=== PATIENT | female | born 1990 | race Caucasian/White ===

== ENCOUNTER 2016-05-31 14:16 | Outpatient (CLI) | payer OTHER, BC ==
[2016-05-31 15:31] LABS: Aty Lym Flag Marked; CH 26.1; CHCM 32.7; HCT 33.7 % (34.0-46.0); HDW 3.92; HGB 10.8 gm/dL (11.4-16.0); Hypochromasia Slight; MCH 25.7 pg (25.0-35.0); MCHC 32.1 g/dL (31.0-37.0); MPO Flag Slight; Mean Platelet Volume 7.4; Poikilocytosis Slight; RBC 4.21 m/uL (3.80-5.40); WBC 7.9 k/uL (3.8-10.6); WBC (Perox) 379.6
[2016-05-31 15:51] LABS: ALT 548 U/L (9-52); AST 182 U/L (14-36); Alkaline Phosphatase 227 U/L (38-126)
[2016-05-31 16:09] LABS: Add Differential Manual Differential
[2016-05-31 16:10] LABS: Nucleated Red Blood Cells 0 /100 WBC (0-0); Total Cells Counted 100
--- NOTE | 2016-05-31 17:47 | US ---
EXAMINATION TYPE: US OB BPP wo non-stress DATE OF EXAM: 05/31/2016 5:40 PM COMPARISON: NONE CLINICAL HISTORY: Cholestasis. Decreased movement EXAM PERFORMED: Transabdominal (TA) BPP PARAMETERS: PRESENTATION: Breech LIE: Longitudinal?? HEART RATE: 139bpm RHYTHM: Normal GLORIA: 11.9cm DIAPHRAGM IMAGED: yes BPP SCORIN. Breathin (1 episode of breathing of 30 second duration in 30 minutes of scanning time) 2. Movement: 2 (at least 2 discrete body movements in 30 minutes) 3. Tone: 2 (1 episode of active flexion/extension of limb) 4. GLORIA: 2 (GLORIA index > 5cm) TOTAL SCORE: 8 / 8 TECHNOLOGIST IMPRESSION: Score 8/8. Preliminary results given to L&D nurse at end of exam CONCLUSION: Biophysical profile score is 8 out of 8.
== END 2016-05-31 17:45 | disposition home or self-care (01) ==
LOC: FBPOP 14:16
PROVIDERS: ATTEND Obstetrics & Gynecology
DX: O36.8130 Decreased fetal movements, third trimester, not applicable or unspecified (principal); R10.2 Pelvic and perineal pain; Z3A.36 36 weeks gestation of pregnancy; R05 Cough; L29.9 Pruritus, unspecified
CPT/HCPCS: 59025; 76819; 82239; 84075; 84450; 84460; 85025; 99213

== ENCOUNTER 2016-06-03 11:27 | Inpatient (IN) | payer BC, OTHER ==
[~2016-06-03 11:27] MED LIST: BUPIVACAINE (PF) 0.25% 30 ML VIAL ONE; SODIUM CHLORIDE 0.9% 100 ML BAG ONE; fentaNYL (PF) 50 MCG/ML 5 ML AMP ONE
[2016-06-03] MEDS ORDERED: METHYLERGONOVINE 0.2 MG/ML 1 ML AMP IM PRN (11:30)
[2016-06-03] MEDS ORDERED: OXYTOCIN 10 UNIT/ML 1 ML VIAL IM PRN (11:30)
[2016-06-03] MEDS ORDERED: TERBUTALINE 1 MG/ML VIAL SQ PRN (11:30)
[2016-06-03] MEDS ORDERED: CARBOPROST TROMETHAMINE 250 MCG/ML 1 ML AMP IM PRN (11:30)
[2016-06-03] MEDS ORDERED: LIDOCAINE 1% (PF) 10 MG/ML (30 ML SDV) SQ PRN (11:30)
[2016-06-03] MEDS ORDERED: MISOPROSTOL 25 MCG TAB PO SCH (12:00)
[2016-06-03 12:16] LABS: Basophils % (A) 0 %; CH 25.8; CHCM 32.9; Eosinophils % (A) 0 %; HCT 34.7 % (34.0-46.0); HDW 3.87; HGB 11.1 gm/dL (11.4-16.0); Hypochromasia Slight; Luc # (Auto) 0.15; Luc % (Auto) 2; Lymphocytes # (A) 1.6 k/uL (1.0-4.8); Lymphocytes % (A) 19 %; MCH 25.2 pg (25.0-35.0); MCHC 32.1 g/dL (31.0-37.0); MCV 78.6 fL (80.0-100.0); Mean Platelet Volume 7.7; Monocytes # (A) 0.3 k/uL (0-1.0); Monocytes % (A) 4 %; Neutrophils # (A) 6.5 k/uL (1.3-7.7); Neutrophils % (A) 75 %; Poikilocytosis Slight; RBC 4.42 m/uL (3.80-5.40); RDW 13.9 % (11.5-15.5); WBC 8.7 k/uL (3.8-10.6); WBC (Perox) 9.11
[2016-06-03 12:17] LABS: ALT 459 U/L (9-52); AST 132 U/L (14-36); Alkaline Phosphatase 223 U/L (38-126)
[2016-06-03 12:23] LABS: INR 0.9 (<1.1); Partial Thromboplastin Time 22.9 sec (22.0-30.0); Prothrombin Time 9.5 sec (9.0-12.0)
[2016-06-03 12:25] VITALS: BMI 30.8
[2016-06-03] MEDS: MISOPROSTOL 25 MCG TAB VAGINAL SCH ×4 (12:30→21:38)
[2016-06-03] MEDS: LACTATED RINGERS 1,000 ML IV SCH ×2 (12:34→17:31)
--- NOTE | 2016-06-03 12:41 | P.HPOB ---
History of Present Illness H&P Date: 06/03/16 Chief Complaint: Cholestasis of , recommendation of maternal medicine to scout This is a 25-year-old white female 2 para 1001 EDC 06/24/2016 at 37 weeks gestation. Patient presented to labor and delivery over the weekend with an increasing sensation of itching. Labs were done including ALT of 548, AST 182, alk phos 227. Fetus is been active throughout the . She presented to the office today for follow-up. Reactive NST was noted. I discussed the case thoroughly with Dr. Tavarez at [facility], maternal- medicine. His recommendation was for delivery today. This is due to an elevated risk of internal uterine demise. Past medical history is significant for fatty liver in the past, liver enzymes in the normal limits first trimester . Also significant for asthma. Current medications Ventolin inhaler as needed, vitamin daily. ALLERGIES none known. Past surgical history left knee scope 2007, adenoidectomy 2006, tonsillectomy 2006. 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 history: Blood type is O+, group B strep cultures negative, rubella status immune. VDRL testing, urine culture, gonorrhea Chlamydia cultures, hepatitis B surface antigen, HIV testing all negative. One-hour Glucola 156, 3 hour GTT within normal limits. Ultrasound has identified a full right renal pelvis of the fetus, pediatricians will be notified. On exam this is a pleasant white female, 5 foot 3 inches, 174 pounds, blood pressure 122/64, respirations 18, temperature 98.4, 100% O2 saturation. Chest is clear in all carlson. Abdomen is obvious E gravid, fundal height is 37 cm, infant is vertex to Juan's maneuvers. Cervix is long, moderately soft, mid position, floating, vertex, fingertip in the internal cervical canal. Cytotec 25 MCG's is placed intravaginally. heart rate is in the 140s with frequent accelerations, consistent with reactive NST. Admitting labs today include AST 132, ALT for 59, alk phos 223, normal PT and PTT. Impression: 37 week intrauterine , cholestasis of , recommendation of maternal medicine for delivery today. Plan: With an unfavorable cervix we will utilize Cytotec, every 3-4 hours intravaginally. Close maternal and surveillance. Clear liquids until active labor. Likely oxytocin and artificial amniorrhexis of membranes in the morning. Past Medical History Past Medical History: Asthma History of Any Multi-Drug Resistant Organisms: None Reported Past Surgical History: Adenoidectomy, Orthopedic Surgery, Tonsillectomy Additional Past Surgical History / Comment(s): Left Knee scoped Past Anesthesia/Blood Transfusion Reactions: No Reported Reaction Past Psychological History: No Psychological Hx Reported Smoking Status: Never smoker Past Alcohol Use History: None Reported Past Drug Use History: None Reported - Past Family History Mother Family Medical History: Hypertension Medications and Allergies Home Medications Medication Instructions Recorded Confirmed Type Albuterol Inhaler [Ventolin 1 puff INHALATION ONCE PRN 12/16/14 05/31/16 History Inhaler] Pnv #78/Iron Asp Gly/FA#1/Dha 1 each PO DAILY 12/16/14 05/31/16 History [Prenate Dha Softgel] Allergies Allergy/AdvReac Type Severity Reaction Status Date / Time No Known Allergies Allergy Verified 06/03/16 11:30 Exam - Vital Signs Vital signs: Vital Signs Temp Pulse Resp BP Pulse Ox 06/03/16 11:28 98.4 F 120 H 18 122/64 100 Intake and Output 06/02/16 06/03/16 06/03/16 22:59 06:59 14:59 Other: Weight 78.925 kg Patient Weight 06/04/16 06:59 Weight 78.925 kg Results Result Diagrams: 06/03/16 11:50 Abnormal Lab Results - Last 24 Hours (Table) 06/03/16 06/03/16 Range/Units 11:50 11:50 Hgb 11.1 L (11.4-16.0) gm/dL MCV 78.6 L (80.0-100.0) fL AST 132 H (14-36) U/L ALT 459 H (9-52) U/L Alkaline Phosphatase 223 H (38-126) U/L
[2016-06-04] MEDS: LACTATED RINGERS 1,000 ML IV SCH ×2 (01:38→08:11)
[2016-06-04] MEDS: MISOPROSTOL 25 MCG TAB VAGINAL SCH ×3 (01:38→10:15)
[2016-06-04] MEDS ORDERED: BUTORPHANOL 1 MG/ML 1 ML VIAL IV PRN (04:39)
[2016-06-04] MEDS: OXYTOCIN 30 UNITS/500 ML NS 30 UNIT in SALINE 1 500ML.BAG IV SCH ×2 (06:24→13:29)
[2016-06-04] MEDS ORDERED: BUPIVACAINE (PF) 0.25% 25 ML, fentaNYL (PF) 200 MCG in SODIUM CHLORIDE 0.9% 71 ML EPIDURAL ONE (07:54)
[2016-06-04] MEDS ORDERED: BISACODYL 10 MG SUPP RECTAL PRN (11:50)
[2016-06-04] MEDS ORDERED: BENZOCAINE/MENTHOL SPRAY 1 GM/SPRAY AEROSOL TOPICAL PRN (11:50)
[2016-06-04] MEDS ORDERED: diphenhydrAMINE 50 MG CAP PO PRN (11:50)
[2016-06-04] MEDS ORDERED: ZOLPIDEM 5 MG TAB PO PRN (11:50)
[2016-06-04] MEDS ORDERED: WITCH HAZEL 1 EACH MED..PAD TOPICAL PRN (11:50)
[2016-06-04] MEDS ORDERED: SIMETHICONE 80 MG CHEWABLE PO PRN (11:50)
[2016-06-04] MEDS ORDERED: IBUPROFEN 600 MG TAB PO PRN (11:50)
[2016-06-04] MEDS ORDERED: Acetaminophen-Codeine 300-30mg TAB PO PRN (11:50)
[2016-06-04] MEDS ORDERED: HYDROCORTISONE 2.5% RECTAL CREAM 30 GM TUBE RECTAL PRN (11:50)
[2016-06-04] MEDS ORDERED: diphenhydrAMINE 25 MG CAP PO PRN (11:50)
[2016-06-04] MEDS ORDERED: diphenhydrAMINE 50 MG/ML 1 ML VIAL IVP PRN ×2 (11:50)
[2016-06-04] MEDS ORDERED: ACETAMINOPHEN TAB 325 MG TAB PO PRN (11:50)
[2016-06-04] MEDS ORDERED: LANOLIN CREAM 5 GM TUBE TOPICAL PRN (11:50)
--- NOTE | 2016-06-04 11:50 | P.PROBDLV ---
Vaginal Delivery Note - . Vaginal Delivery Note: This is a 25-year-old white female 2 para 1001 EDC 06/24/2016 at 37 and one sevenths weeks today. Patient was seen in the office yesterday in follow- up from the triage area. She was noted to have cholestasis of with abnormal lab values. Her case was discussed in detail with maternal- medicine at [facility], Dr. Tavarez. Concern was for intrauterine demise, and recommendation was to move toward delivery. Cervix was unfavorable, therefore she was admitted for Cytotec 25 MCG tablets placed intravaginally. Please see my dictated history and physical for details. Cytotec was indeed placed intravaginally 4. Uterine contractions commenced. Patient requested Stadol at approximately 0500 hrs. and was given 1 mg intravenously. Artificial amniorrhexis revealed clear fluid. Oxytocin was started and titrated per hospital protocol. She became uncomfortable and requested epidural, this was placed without difficulty per the anesthesia staff. She progressed well through labor and was judged to be completely dilated and began the second stage of labor at that time. Station was +1. Perineal body was prepped and draped in the usual sterile fashion. With excellent maternal expulsive efforts, and with 1 push, the 's head crowned occiput anterior. He restituted accordingly. There was no nuchal cord noted. The right or anterior shoulder was gently and easily delivered from underneath the pubic symphysis at which time the oropharynx, nasopharynx, and external nares were bulb suctioned on the perineal body. Patient was officially delivered of a liveborn male at 1115 hours. The umbilical cord was doubly clamped and ligated, he was handed to waiting nurses for evaluation where scores of 8 and 9 at one and 5 minutes respectively were given. The placenta delivered spontaneously, it was inspected and noted to be intact with trivascular cord at 1125 hours. At this time the perineal body was redraped with sterile towels. Inspection of the cervix, vagina, perineum and periurethral areas revealed no lacerations and no defects. Fundus is massaged, is firm and in the midline, approximately 18 week size. Total estimated blood loss 250 mL's. All sponge, needle and instrument counts are correct at the end of the procedure. weighed 3030 g, or 6 lbs. 11 oz. The and family are allowed to begin the bonding experience in the LDR. Patient is requesting circumcision for her infant son.
[2016-06-04] MEDS: SENNOSIDES-DOCUSATE SODIUM 1 EACH TAB PO SCH (20:27)
--- NOTE | 2016-06-05 07:48 | P.DS ---
Providers Date of admission: 06/03/16 11:27 Attending physician: Ruchi Lane Primary care physician: Stated None Hospital Course: This is a 25-year-old white female 2 para 1001 EDC 06/24/2016 at 37 and one sevenths weeks' gestation. Patient presented to the office for follow-up on a triage visit 3 days before. The diagnosis of cholestasis of was made. This was discussed with maternal- medicine at [facility], Dr. Tavarez. His recommendation was for immediate delivery secondary to the increased risk of intrauterine demise. Cervix was unfavorable, therefore patient was admitted and underwent Cytotec vaginal tablets every 3 hours for total of 4 doses. Please see my admitting history and physical for details. Artificial amniorrhexis revealed clear fluid the following morning, Pitocin was started, and patient went on to deliver a liveborn male infant with scores of 8 and 9 at one and 5 minutes respectively. weighed 6 lbs. 11 oz. or 3030 g. She did well, no perineal lacerations, estimated blood loss 250 mL's. Please see my dictated delivery note for details. This morning the patient is doing extremely well. She is voiding, ambulating and passing flatus without difficulty. She's completely asymptomatic. Breast- feeding is going well. infant has been circumcised. Breasts are not engorged, extremities are negative, fundus is firm in the midline, symmetric and 18 week size. Minimal to moderate lochia rubra is noted, perineal body is intact. Patient is being therefore discharged home this morning in good condition. She will follow-up with me in the office in 6 weeks at which time liver function studies will be repeated. She is reminded no intercourse, tampons or douching. She will use [id number] Advil or Motrin products as needed for pain. I' ve asked her to call me with any fevers shakes or chills, foul smelling or copious lochia, with the passage of large blood clots, with any pain breast- feeding or indeed with any difficulties. She will continue taking her vitamin daily. We have discussed briefly options for contraception and we will discuss this further in the office. Patient Condition at Discharge: Good Plan - Discharge Summary Discharge Medication List Albuterol Inhaler [Ventolin Inhaler] 1 puff INHALATION ONCE PRN 12/16/14 [ History] Pnv #78/Iron Asp Gly/FA#1/Dha [Prenate Dha Softgel] 1 each PO DAILY 12/16/14 [ History] Ursodiol 300 mg PO TID 06/03/16 [History] Follow up Appointment(s)/Referral(s): Ruchi Lane MD [STAFF PHYSICIAN] - 6 Weeks Patient Instructions/Handouts: Induction of Labor (GEN) Discharge Disposition: HOME SELF-CARE
[2016-06-05] MEDS: SENNOSIDES-DOCUSATE SODIUM 1 EACH TAB PO SCH ×2 (08:28→20:57)
[2016-06-05] MEDS: OXYTOCIN 30 UNITS/500 ML NS 30 UNIT in SALINE 1 500ML.BAG IV SCH ×3 (20:39→21:22)
[2016-06-06 09:17] VITALS: BP 108/72; PULSE 84; RESP 16; TEMP 97.4
[2016-06-06] MEDS: SENNOSIDES-DOCUSATE SODIUM 1 EACH TAB PO SCH (15:46)
== END 2016-06-06 15:15 | disposition home or self-care (01) | DRG 775 ==
LOC: 4FBP 11:27
PROVIDERS: ADMIT Obstetrics & Gynecology; ATTEND Obstetrics & Gynecology
PROC: 10E0XZZ Delivery of Products of Conception, External Approach (ICD-10-PCS; principal; 2016-06-04)
PROC: 3E0P7GC Introduction of Other Therapeutic Substance into Female Reproductive, Via Natural or Artificial Opening (ICD-10-PCS; 2016-06-04)
PROC: 10907ZC Drainage of Amniotic Fluid, Therapeutic from Products of Conception, Via Natural or Artificial Opening (ICD-10-PCS; 2016-06-04)
PROC: 00HU33Z Insertion of Infusion Device into Spinal Canal, Percutaneous Approach (ICD-10-PCS; 2016-06-04)
DX: O26.62 Liver and biliary tract disorders in childbirth (principal); K83.1 Obstruction of bile duct; O99.52 Diseases of the respiratory system complicating childbirth; Z3A.37 37 weeks gestation of pregnancy; Z37.0 Single live birth; J45.909 Unspecified asthma, uncomplicated; Z82.49 Family history of ischemic heart disease and other diseases of the circulatory system
CPT/HCPCS: 84075; 84450; 84460; 85025; 85610; 85730; 88307

== ENCOUNTER → 2017-09-16 | Outpatient (CLI) | payer BC ==
[2017-09-16 12:08] LABS: Basophils # (A) 0.1 k/uL (0-0.2); Basophils % (A) 1 %; Eosinophils # (A) 0.2 k/uL (0-0.7); Eosinophils % (A) 2 %; HCT 41.2 % (34.0-46.0); HGB 13.3 gm/dL (11.4-16.0); Lymphocytes # (A) 2.1 k/uL (1.0-4.8); Lymphocytes % (A) 27 %; MCH 26.5 pg (25.0-35.0); MCHC 32.3 g/dL (31.0-37.0); Mean Platelet Volume 6.7; Monocytes # (A) 0.3 k/uL (0-1.0); Monocytes % (A) 4 %; Neutrophils # (A) 5.1 k/uL (1.3-7.7); Neutrophils % (A) 65 %; Platelet Count 370 k/uL (150-450); RBC 5.02 m/uL (3.80-5.40); RDW 13.7 % (11.5-15.5); WBC 7.8 k/uL (3.8-10.6)
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
== END | disposition home or self-care (01) ==
LOC: RADCTMAIN 09:57
PROVIDERS: ATTEND Internal Medicine Sleep Medicine
DX: S30.1XXA Contusion of abdominal wall, initial encounter (principal); M79.89 Other specified soft tissue disorders
CPT/HCPCS: 85025; 81025; 74177; 36415; Q9967

== ENCOUNTER → 2020-12-04 | Outpatient (CLI) | payer OTHER | END | disposition home or self-care (01) | LOC: LABWHC1 07:14 | PROVIDERS: ATTEND Obstetrics & Gynecology | DX: Z36.9 Encounter for antenatal screening, unspecified (principal) | CPT/HCPCS: 36415; 82950 ==

== ENCOUNTER 2021-02-28 06:00 | Inpatient (IN) | payer OTHER ==
[2021-02-28] MEDS ORDERED: METHYLERGONOVINE 0.2 MG/ML 1 ML AMP IM PRN (06:26)
[2021-02-28] MEDS ORDERED: CARBOPROST TROMETHAMINE 250 MCG/ML 1 ML AMP IM PRN (06:26)
[2021-02-28] MEDS ORDERED: TERBUTALINE 1 MG/ML VIAL SQ PRN (06:26)
[2021-02-28] MEDS ORDERED: OXYTOCIN 10 UNIT/ML 1 ML VIAL IM PRN (06:26)
[2021-02-28] MEDS ORDERED: LIDOCAINE 0.5% (PF) 5 MG/ML (50 ML SDV) SQ PRN (06:26)
[2021-02-28] MEDS ORDERED: OXYTOCIN 30 UNITS/500 ML NS 30 UNIT in SALINE 1 500ML.BAG IV SCH (06:30)
[2021-02-28 06:40] LABS: Anisocytosis Moderate; Basophils % (A) 0 %; Eosinophils # (A) 0.2 k/uL (0-0.7); Eosinophils % (A) 2 %; HCT 35.1 % (34.0-46.0); HGB 11.2 gm/dL (11.4-16.0); Lymphocytes # (A) 1.7 k/uL (1.0-4.8); Lymphocytes % (A) 16 %; MCH 25.4 pg (25.0-35.0); MCHC 31.8 g/dL (31.0-37.0); MCV 79.8 fL (80.0-100.0); Mean Platelet Volume 7.3; Microcytosis Slight; Monocytes # (A) 0.4 k/uL (0-1.0); Monocytes % (A) 4 %; Neutrophils % (A) 76 %; Platelet Count 237 k/uL (150-450); RDW 20.4 % (11.5-15.5); WBC 10.5 k/uL (3.8-10.6)
[2021-02-28] MEDS: LACTATED RINGERS 1,000 ML IV SCH ×3 (06:44→16:46)
--- NOTE | 2021-02-28 07:44 | P.HPOB ---
History of Present Illness H&P Date: 02/28/21 Chief Complaint: Here for induction of labor for cholestasis of This is a 30-year-old female 3 para 2002 EDC 03/12/2021 at 38-2/7 weeks' gestation who presents today as per recommendations for induction of labor for history of cholestasis of . Patient denies fluid leakage or vaginal bleeding. Fetus is been active throughout the , weekly nonstress testing has all been reactive. ALLERGIES none known. history blood type O+, rubella status immune. VDRL testing, hepatitis B surface antigen, HIV testing, VDRL testing, group B strep cultures all negative. One-hour Glucola and three-hour GTT elevated, gestational diabetes. Current medications vitamins daily, insulin per blood sugar management, Ventolin inhaler daily, Past medical history is significant for asthma, exercise-induced. Past surgical history left knee scope 2007, tonsillectomy and adenoidectomy. Family history significant for asthma, hypertension, stroke, Down syndrome, GERD, breast cancer, arthritis. Social history patient is , her is present. She denies alcohol smoking or drug use. On exam patient is 5 foot 1.5 inches, 195 pounds, vital signs are stable and patient is afebrile. The general physical exam is within normal limits. Chest is clear in all carlson. Extremities reveal no edema. Cervix is 2 cm dilated, 60% effaced, -2 station vertex presentation, soft and anterior. Artificial amniorrhexis reveals clear fluid. heart rate is consistent with reactive NST. Rare uterine contractions are noted. Blood sugar on admission pending. Impression: 38-2/7 weeks intrauterine , cholestasis of , exercise-induced asthma, gestational diabetes on insulin. Here for induction of labor based on recommendations from maternal- medicine. Plan oxytocin per hospital protocol. Close maternal and surveillance. Analgesic options reviewed with the patient. Anticipate normal spontaneous vaginal delivery. Review of Systems Constitutional: Reports as per HPI Past Medical History Past Medical History: Asthma History of Any Multi-Drug Resistant Organisms: None Reported Past Surgical History: Adenoidectomy, Orthopedic Surgery, Tonsillectomy Additional Past Surgical History / Comment(s): Left Knee scoped Past Anesthesia/Blood Transfusion Reactions: No Reported Reaction Past Psychological History: No Psychological Hx Reported Smoking Status: Never smoker Past Alcohol Use History: None Reported Past Drug Use History: None Reported - Past Family History Mother Family Medical History: Hypertension Medications and Allergies Home Medications Medication Instructions Recorded Confirmed Type Albuterol Inhaler (Mhu) [Ventolin 1 puff INHALATION ONCE PRN 12/16/14 02/28/21 History Inhaler] 78/Iron/Folate 1/Dha 1 each PO DAILY 12/16/14 02/28/21 History [Prenate Dha Softgel] Insulin Degludec [Tresiba] 2 units SQ DAILY 02/28/21 02/28/21 History Allergies Allergy/AdvReac Type Severity Reaction Status Date / Time No Known Allergies Allergy Verified 02/28/21 06:20 Exam Vital Signs Pulse Resp BP Pulse Ox 02/28/21 06:19 93 17 118/67 98 Intake and Output 02/27/21 02/28/21 02/28/21 22:59 06:59 14:59 Other: Weight 87.543 kg See dictation under HPI please Results Result Diagrams: 02/28/21 06:25 Abnormal Lab Results - Last 24 Hours (Table) 02/28/21 Range/Units 06:25 Hgb 11.2 L (11.4-16.0) gm/dL MCV 79.8 L (80.0-100.0) fL RDW 20.4 H (11.5-15.5) % Neutrophils # 8.0 H (1.3-7.7) k/uL Assessment and Plan Assessment: 38-2/7 weeks intrauterine , exercise-induced asthma, gestational diabet es on insulin, cholestasis of . Here for induction of labor per recommendation of maternal medicine team Plan: Oxytocin per hospital protocol. Close maternal and surveillance. Analgesic options reviewed. Anticipate normal spontaneous vaginal delivery. Time with Patient: Less than 30
[2021-02-28] MEDS ORDERED: ROPIVACAINE 5MG/ML 20ML VIAL ONE (16:37)
[2021-02-28] MEDS ORDERED: SODIUM CHLORIDE 0.9% 100 ML BAG ONE (16:37)
[2021-02-28] MEDS ORDERED: fentaNYL (PF) 50 MCG/ML 5 ML AMP ONE (16:37)
[2021-02-28] MEDS ORDERED: ROPIVACAINE 100 MG, fentaNYL (PF). 200 MCG in SODIUM CHLORIDE 0.9% 76 ML EPIDURAL ONE (17:40)
[2021-02-28] MEDS ORDERED: PENICILLIN G POTASSIUM 5,000,000 UNIT in DEXTROSE 5% IN WATER 100 ML IVPB STA ×2 (19:32)
[2021-02-28 20:57] LABS: Glucose,Whole Blood 74 mg/dL (75-99)
[2021-02-28] MEDS ORDERED: SIMETHICONE 80 MG CHEWABLE PO PRN (23:35)
[2021-02-28] MEDS ORDERED: diphenhydrAMINE 50 MG CAP PO PRN (23:35)
[2021-02-28] MEDS ORDERED: ZOLPIDEM 5 MG TAB PO PRN (23:35)
[2021-02-28] MEDS ORDERED: HYDROCORTISONE 2.5% RECTAL CREAM 30 GM TUBE RECTAL PRN (23:35)
[2021-02-28] MEDS ORDERED: BENZOCAINE/MENTHOL SPRAY 1 GM/SPRAY AEROSOL TOPICAL PRN (23:35)
[2021-02-28] MEDS ORDERED: diphenhydrAMINE 50 MG/ML 1 ML VIAL IVP PRN ×2 (23:35)
[2021-02-28] MEDS ORDERED: diphenhydrAMINE 25 MG CAP PO PRN (23:35)
[2021-02-28] MEDS ORDERED: LANOLIN CREAM 5 GM TUBE TOPICAL PRN (23:35)
--- NOTE | 2021-02-28 23:35 | P.PROBDLV ---
Vaginal Delivery Note - . Vaginal Delivery Note: This is a 30-year-old female 3 para 2001 EDC 03/12/2021 at 38-2/7 weeks' gestation who presented for induction of labor with a history of cholestasis an insulin dependent gestational diabetes. Group B strep cultures negative. Rubella status immune. Blood type O positive. Please see dictated history and physical for details. Blood sugar on admission 97. Artificial amniorrhexis revealed clear fluid. Oxytocin was started and titrated per hospital protocol. Epidural was placed per the patient's request. Ultimately the patient became completely dilated. The perineal body was prepped and draped in the usual sterile fashion. With excellent maternal expulsive efforts the infant's head delivered occiput anterior and restituted accordingly. There was no nuchal cord noted. The right or anterior shoulder was then delivered easily from underneath the pubic symphysis at which time the oropharynx, nasopharynx, and external nares were all bulb suctioned. Patient was officially delivered of a liveborn female infant at 1020 hrs. Umbilical cord was doubly clamped and ligated, she was handed to waiting nurses for evaluation where scores of 9 and 9 at one and 5 minutes respectively were given. Uterus is then massaged. Placenta delivered spontaneously, it was inspected and noted to be intact with trivascular cord at 1023 hrs. Placenta will be sent to pathology for history of cholestasis of . Uterus is massaged. Careful inspection of the cervix, vagina, perineum, periurethral, and perirectal areas revealed no lacerations and no defects. Total estimated blood loss 300 mL's. All sponge needle and enhancement counts are correct. Infant weighs 8 lbs. 8 oz. or 3860 g. Patient is allowed to begin the bonding experience with her infant
[2021-03-01 01:13] LABS: Glucose,Whole Blood 59 mg/dL (75-99)
--- NOTE | 2021-03-01 03:55 | P.PN ---
Subjective Progress Note Date: 03/01/21 Principal diagnosis: Status post vaginal delivery, increased vaginal bleeding Objective - Vital Signs Vital signs: Vital Signs Temp 99.4 F 03/01/21 01:30 Pulse 103 H 03/01/21 02:00 Resp 17 03/01/21 02:00 BP 117/65 03/01/21 01:30 Pulse Ox 97 03/01/21 00:00 Intake & Output 02/28/21 02/28/21 03/01/21 06:59 18:59 06:59 Intake Total 256.617 Balance 256.617 Weight 87.543 kg Intake: Intake, IV Titration 16.617 Amount Oxytocin 30 Units/500 ml 16.617 Ns 30 unit In Saline 1 500ml.bag @ Per Protocol IV .Q0M DAIJA Rx#:[id number] Oral 240 Other: # Voids 1 1 - Constitutional General appearance: Present: cooperative, obese - EENT Eyes: Present: PERRLA ENT: Present: hearing grossly normal - Respiratory Respiratory: bilateral: CTA - Cardiovascular Rhythm: regular - Gastrointestinal General gastrointestinal: Present: normal bowel sounds - Genitourinary Genitourinary Comment(s): Fundus is smooth, 1-2 fingerbreadths above the umbilicus. Sterile glove was placed, evaluation of the intrauterine cavity reveals approximately 300 mL of organized clot. This is removed with massage and digital evacuation. The uterus now 1-2 cm below the umbilicus, firm and midline. Leading has dramatically subsided. Appropriate this time for status. Tolerated well. No evidence of perineal lacerations or other defects. - Integumentary Integumentary: Present: normal - Neurologic Neurologic: Present: CNII-XII intact - Musculoskeletal Musculoskeletal: Present: gait normal, strength equal bilaterally - Psychiatric Psychiatric: Present: A&O x's 3, appropriate affect, intact judgment & insight - Labs CBC & Chem 7: 02/28/21 06:25 02/28/21 08:01 Labs: Abnormal Lab Results - Last 24 Hours (Table) 02/28/21 02/28/21 03/01/21 Range/Units 06:25 20:56 01:12 Hgb 11.2 L (11.4-16.0) gm/dL MCV 79.8 L (80.0-100.0) fL RDW 20.4 H (11.5-15.5) % Neutrophils # 8.0 H (1.3-7.7) k/uL POC Glucose (mg/dL) 74 L 59 L (75-99) mg/dL Assessment and Plan Assessment: Increased vaginal bleeding reporting by nursing staff, uterine evacuation of old clot performed. Bleeding now substantially diminished. Plan: Continued uterine massage. Methergine has been given. Maintain IV access. Check CBC at 0600. Time with Patient: Less than 30
[2021-03-01] MEDS ORDERED: ACETAMINOPHEN TAB 325 MG TAB PO PRN (04:06)
[2021-03-01] MEDS: LACTATED RINGERS 1,000 ML IV SCH (04:53)
[2021-03-01] MEDS: SENNOSIDES-DOCUSATE SODIUM 1 EACH TAB PO SCH (07:45)
--- NOTE | 2021-03-01 07:50 | P.PN ---
Subjective Progress Note Date: 03/01/21 Principal diagnosis: day #1 Brisk vaginal bleeding through the night, improved this morning. Patient denies lightheadedness or dizziness. Bleeding now like a heavy period. No further clot passage. Objective - Vital Signs Vital signs: Vital Signs Temp 98.4 F 03/01/21 05:36 Pulse 96 03/01/21 07:00 Resp 17 03/01/21 03:21 BP 114/70 03/01/21 03:21 Pulse Ox 97 03/01/21 07:00 Intake & Output 02/28/21 03/01/21 03/01/21 18:59 06:59 18:59 Intake Total 1220.000 Balance 1220.000 Intake: Intake, IV Titration 500.000 Amount Oxytocin 30 Units/500 ml 500.000 Ns 30 unit In Saline 1 500ml.bag @ Per Protocol IV .Q0M DAIJA Rx#:[id number] Oral 720 Other: # Voids 1 2 - Constitutional General appearance: Present: average body habitus, obese - EENT Eyes: Present: PERRLA ENT: Present: hearing grossly normal - Cardiovascular Rhythm: regular - Gastrointestinal General gastrointestinal: Present: normal bowel sounds - Genitourinary Genitourinary Comment(s): Fundus firm, symmetric, midline, at or just below the umbilicus, nontender. - Integumentary Integumentary: Present: normal - Neurologic Neurologic: Present: CNII-XII intact - Musculoskeletal Musculoskeletal: Present: strength equal bilaterally - Psychiatric Psychiatric: Present: A&O x's 3, appropriate affect, intact judgment & insight - Labs CBC & Chem 7: 02/28/21 06:25 02/28/21 08:01 Labs: Abnormal Lab Results - Last 24 Hours (Table) 02/28/21 03/01/21 Range/Units 20:56 01:12 POC Glucose (mg/dL) 74 L 59 L (75-99) mg/dL Assessment and Plan Assessment: Doing well first post day. Vaginal bleeding improved. Patient asymptomatic. Morning Hb pending Plan: Continue post care. Monitor vaginal flow. Likely discharge home tomorrow. Time with Patient: Less than 30
[2021-03-01 08:04] LABS: Anisocytosis Moderate; Basophils # (A) 0.1 k/uL (0-0.2); Basophils % (A) 0 %; Eosinophils # (A) 0.1 k/uL (0-0.7); Eosinophils % (A) 0 %; HCT 35.7 % (34.0-46.0); Hypochromasia Slight; Lymphocytes # (A) 1.3 k/uL (1.0-4.8); Lymphocytes % (A) 7 %; MCH 24.8 pg (25.0-35.0); MCHC 30.8 g/dL (31.0-37.0); MCV 80.7 fL (80.0-100.0); Mean Platelet Volume 8.4; Microcytosis Slight; Monocytes # (A) 0.7 k/uL (0-1.0); Monocytes % (A) 3 %; Neutrophils # (A) 17.7 k/uL (1.3-7.7); Neutrophils % (A) 89 %; Platelet Count 270 k/uL (150-450); RBC 4.42 m/uL (3.80-5.40); RDW 20.7 % (11.5-15.5); WBC 19.9 k/uL (3.8-10.6)
--- NOTE | 2021-03-02 08:10 | P.DS ---
Providers Date of admission: 02/28/21 06:00 Expected date of discharge: 03/02/21 Attending physician: Ruchi Lane Primary care physician: [facility] Course: This is a 30-year-old female 3 para 2001 EDC 03/12/2021 at 38 and 2 presented for induction for cholestasis of , and gestational diabetes, on insulin. Recommendation from maternal- medicine was for delivery between 3839 weeks. Blood type O+, rubella status immune, group B strep cultures negative. Please see my dictated history and physical for details. Artificial amniorrhexis revealed clear fluid. Patient went on to ultimately deliver vaginally a liveborn female infant with scores of 9 and 9 at one and 5 minutes respectively. weighed 3860 g, or 8 lbs. 8 oz. Estimated blood loss at delivery was 300 mL, however bleeding became heavy after delivery, manual extraction of blood clots was performed at the bedside with immediate improvement. Methergine was given 1 as well. The patient is doing well today. Her vital signs are stable and she is afebrile. Bleeding is minimal. Breasts are not engorged. Breast-feeding is going well. Fundus is firm and in the midline, symmetric and 18 week size. Extremities are negative for edema. [place] is undergoing phototherapy, and may stay an additional day. However patient is judged to be in very good condition for discharge home today. Patient will follow-up with me in the office in 6 weeks. She is reminded no intercourse, tampons or douching. She will use [id number] Advil or Aleve, or Motrin as needed for pain. She will call with any fevers shakes or chills, foul smelling or copious lochia, with the passage of large blood clots, with any pain not alleviated by [id number] products, or indeed with any concerns. We have briefly discussed options for contraception and we will discuss this further in the office. Assessment: Doing well second day Patient Condition at Discharge: Good Plan - Discharge Summary Discharge Rx Participant: No New Discharge Prescriptions: No Action 78/Iron/Folate 1/Dha [Prenate Dha Softgel] 1 each PO DAILY Albuterol Inhaler (Mhu) [Ventolin Inhaler] 1 puff INHALATION ONCE PRN PRN Reason: Shortness Of Breath Insulin Degludec [Tresiba] 2 units SQ DAILY Discharge Medication List Albuterol Inhaler (Mhu) [Ventolin Inhaler] 1 puff INHALATION ONCE PRN 12/16/14 [History] 78/Iron/Folate 1/Dha [Prenate Dha Softgel] 1 each PO DAILY 12/16/14 [History] Insulin Degludec [Tresiba] 2 units SQ DAILY 02/28/21 [History] Follow up Appointment(s)/Referral(s): Ruchi Lane MD [STAFF PHYSICIAN] - 6 Weeks Discharge Disposition: HOME SELF-CARE
[2021-03-02] MEDS: SENNOSIDES-DOCUSATE SODIUM 1 EACH TAB PO SCH (10:16)
[2021-03-02 15:40] VITALS: BP 129/87; PULSE 91; RESP 18; TEMP 98.1
== END 2021-03-02 16:00 | disposition home or self-care (01) | DRG 805 ==
LOC: 4FBP 06:00
PROVIDERS: ADMIT Obstetrics & Gynecology; ATTEND Obstetrics & Gynecology
PROC: 10E0XZZ Delivery of Products of Conception, External Approach (ICD-10-PCS; principal; 2021-02-28)
PROC: 3E033VJ Introduction of Other Hormone into Peripheral Vein, Percutaneous Approach (ICD-10-PCS; 2021-02-28)
PROC: 10907ZC Drainage of Amniotic Fluid, Therapeutic from Products of Conception, Via Natural or Artificial Opening (ICD-10-PCS; 2021-02-28)
PROC: 4A0HX4Z Measurement of Products of Conception, Cardiac Electrical Activity, External Approach (ICD-10-PCS; 2021-02-28)
DX: O26.62 Liver and biliary tract disorders in childbirth (principal); K83.1 Obstruction of bile duct; Z37.0 Single live birth; O72.1 Other immediate postpartum hemorrhage; J45.990 Exercise induced bronchospasm; O24.424 Gestational diabetes mellitus in childbirth, insulin controlled; O99.52 Diseases of the respiratory system complicating childbirth; Z3A.38 38 weeks gestation of pregnancy
CPT/HCPCS: 82947; 85025; 86850; 86900; 86901; 88307

== ENCOUNTER 2021-05-22 09:29 | Day surgery (SDC) | payer OTHER ==
[2021-05-17 08:58] VITALS: BMI 28.7
[~2021-05-22 09:29] MED LIST changes: -BUPIVACAINE (PF) 0.25% 30 ML VIAL ONE; +DEXAMETHASONE SOD PHOSPHATE 4 MG/ML 1 ML VIAL IV ONE; +LACTATED RINGERS 1,000 ML IV SCH; +LIDOCAINE 1% (10MG/ML) FOR IV START INTRADERMA PRN; +ONDANSETRON 4 MG/2 ML VIAL IVP ONE; +Pre Op ABX Message 1 EACH MISC MISCELLANE ONE; +SCOPOLAMINE 1.5MG/72HR PATCH TRANSDERM ONE; -SODIUM CHLORIDE 0.9% 100 ML BAG ONE; -fentaNYL (PF) 50 MCG/ML 5 ML AMP ONE
[2021-05-22] MEDS ORDERED: fentaNYL (PF) 50 MCG/ML 2 ML AMP ONE (10:25)
[2021-05-22] MEDS ORDERED: NEOSTIGMINE 1 MG/ML 10 ML VIAL ONE (10:25)
[2021-05-22] MEDS ORDERED: LIDOCAINE 1% INJ 10MG/ML (20 ML MDV) ONE (10:25)
[2021-05-22] MEDS ORDERED: KETOROLAC 15 MG/ML 1 ML VIAL ONE (10:25)
[2021-05-22] MEDS ORDERED: ROCURONIUM 10 MG/ML (5 ML VIAL) IV ONE (10:25)
[2021-05-22] MEDS ORDERED: GLYCOPYRROLATE 0.2 MG/ML 2 ML VIAL ONE (10:25)
[2021-05-22] MEDS ORDERED: SUCCINYLCHOLINE CHLORIDE 100 MG/5 ML SYR IV ONE (10:25)
[2021-05-22] MEDS ORDERED: MIDAZOLAM 2 MG/2 ML VIAL ONE (10:25)
[2021-05-22] MEDS ORDERED: PROPOFOL 10 MG/ML 20 ML VIAL IV ONE (10:25)
[2021-05-22] MEDS ORDERED: BUPIVACAINE (PF) 0.25% 30 ML VIAL SQ ONE ×2 (10:47)
--- NOTE | 2021-05-22 11:11 | P.OP ---
Date of Procedure: 05/22/21 Preoperative Diagnosis: Undesired fertility Postoperative Diagnosis: Essentially normal-appearing female pelvis Procedure(s) Performed: Laparoscopic tubal ligation with Filshie clips Anesthesia: THOMPSON Surgeon: Ruchi Lane Estimated Blood Loss (ml): 5 IV fluids (ml): 600 Urine output (ml): 25 Pathology: none sent Condition: stable Disposition: PACU Operative Findings: Essentially normal-appearing female pelvis, no endometriosis, no adhesions. Description of Procedure: Patient is brought to the operating suite where a general anesthetic is administered without difficulty. She's placed in the dorsal lithotomy position. The cervix, vagina, perineal body, abdomen are all prepped and draped in the usual sterile fashion. Urine hCG is negative. The appropriate timeout is performed to assure proper patient and procedural identification. Examination under anesthesia reveals a small mobile uterus, negative adnexa bilaterally. Red Yarbrough catheter is used and the bladder is drained for approximate 25 mL of clear yellow urine. Weighted speculum was placed into the vagina. Anterior lip of the cervix is grasped with a double-tooth tenaculum and the acorn cannula is placed on the cervical external os, and attached to the Allis clamp. Speculum is removed. Attention is now drawn to the abdomen. A small infraumbilical incision is made and the varies needle is placed. Placement was checked with hanging drop technique. Abdomen is insufflated under low filling pressures of approximately 6 mmHg for a total of 3.5 L of CO2 gas. Veress needle was removed. 11 trocar is then placed and the laparoscope assures proper placement with no damage to the organs. Uterus is placed in the retroverted position, a second incision is made superior to the pubic bone in the midline. A second cannula is placed, placement again is atraumatic. Patient is now placed in Trendelenburg position and the left fallopian tube is visualized in its entirety to the fimbriated end. The Filshie clip is placed in the isthmic portion of the tube with care to traverse the entire diameter of the tube into the mesal salpinx. Ovary appears normal. Same procedure is carried out contralaterally, again right fimbriated end of the tube is noted and placement is entirely through the tubal diameter into the mesal salpinx. Inspection now of the cavity, bilateral pelvic sidewalls, anterior and posterior cul-de-sacs, appendix, liver edge, gallbladder all clear, no evidence of adhesions or endometriosis. The CO2 gas was allowed to diffuse. The instruments are removed under direct visualization and the fascial defects are negative. 4-0 undyed Monocryl is used in a subcuticular manner for final skin closure. Steri-Strips and Mastisol are applied to the wounds. Instrumentation is removed from the vagina, cervix is clean and dry. All sponge needle and instrument counts are correct. Toradol is given prior to leaving the operative suite. The incisions are injected with a total of 10 mL of quarter percent Marcaine with out epinephrine to aid in analgesia. Patient is brought back to the recovery room in very good condition with stable vital signs including blood pressure 118/62, pulse 60, 98% O2 saturation. She will follow-up with me in the office in 2 weeks.
[2021-05-22 11:25] VITALS: TEMP 97.2
[2021-05-22] MEDS: HYDROmorphone 0.5 MG/0.5 ML SYRINGE IVP PRN ×2 (11:39→11:58)
[2021-05-22 12:23] VITALS: RESP 18
[2021-05-22] MEDS ORDERED: ACETAMINOPHEN TAB 500 MG TAB PO ONE (12:45)
[2021-05-22] MEDS ORDERED: ACETAMINOPHEN TAB 500 MG TAB ONE (12:48)
[2021-05-22 12:50] VITALS: BP 147/95; PULSE 50
== END 2021-05-22 13:08 | disposition home or self-care (01) ==
LOC: OR 09:29
PROVIDERS: ATTEND Obstetrics & Gynecology
DX: Z30.2 Encounter for sterilization (principal); J45.990 Exercise induced bronchospasm; Z98.890 Other specified postprocedural states; Z82.5 Family history of asthma and other chronic lower respiratory diseases; Z82.49 Family history of ischemic heart disease and other diseases of the circulatory system; Z82.3 Family history of stroke; Z82.61 Family history of arthritis; Z80.1 Family history of malignant neoplasm of trachea, bronchus and lung; Z80.0 Family history of malignant neoplasm of digestive organs; Z80.8 Family history of malignant neoplasm of other organs or systems
CPT/HCPCS: 81025; 58671; J2250; J2710; J2405; J2001; J3010; J1885; J0330; J2704; J1170

== ENCOUNTER 2024-05-15 20:05 | Emergency (ER) | payer OTHER ==
[2024-05-15 20:11] VITALS: TEMP 98.6
--- NOTE | 2024-05-15 20:39 | ED ---
Chest Pain HPI - General Chief Complaint: Chest Pain Stated Complaint: chest pain, SOB Time Seen by Provider: 05/15/24 20:13 Source: patient, RN notes reviewed, old records reviewed Mode of arrival: wheelchair Limitations: no limitations - History of Present Illness Initial Comments: This is a 33 female to ER for chest pain chest pain with cough. No prior history of chest pain left-sided chest pain. Pain is worse with a deep breath patient having shortness of breath with deep breath and cough. Recent diagnosis of pneumonia on antibiotics MD Complaint: chest pain, other (Shortness of breath) -: days(s) Onset: during rest, during exertion Pain Location: left chest Pain Radiation: LUE Severity: moderate Severity scale (1-10): 4 Quality: tightness, heaviness Consistency: constant Improves With: nothing Worsens With: nothing Anginal Symptoms: sense of impending doom Other Symptoms: palpitations Treatments Prior to Arrival: none - Related Data Home Medications Medication Instructions Recorded Confirmed No Known Home Medications 05/17/21 05/22/21 Allergies Allergy/AdvReac Type Severity Reaction Status Date / Time No Known Allergies Allergy Verified 05/22/21 09:50 Review of Systems ROS Statement: Those systems with pertinent positive or pertinent negative responses have been documented in the HPI. ROS Other: All systems not noted in ROS Statement are negative. EKG Findings - EKG Comments: EKG Findings:: EKG is sinus tachycardia 112 CO 120 QRS 100 QTc 405 - EKG Results: EKG: interpreted by GINNY Past Medical History Past Medical History: Asthma History of Any Multi-Drug Resistant Organisms: None Reported Past Surgical History: Adenoidectomy, Orthopedic Surgery, Tonsillectomy, Tubal Ligation Additional Past Surgical History / Comment(s): Left Knee scoped Past Anesthesia/Blood Transfusion Reactions: No Reported Reaction Past Psychological History: No Psychological Hx Reported Smoking Status: Never smoker Past Alcohol Use History: None Reported Past Drug Use History: None Reported - Past Family History Mother Family Medical History: Hypertension General Exam General appearance: alert, in no apparent distress Head exam: Present: atraumatic, normocephalic, normal inspection Eye exam: Present: normal appearance, PERRL, EOMI. Absent: scleral icterus, conjunctival injection, periorbital swelling ENT exam: Present: normal exam, mucous membranes moist Neck exam: Present: normal inspection. Absent: tenderness, meningismus, lymphadenopathy Respiratory exam: Present: normal lung sounds bilaterally. Absent: respiratory distress, wheezes, rales, rhonchi, stridor Cardiovascular Exam: Present: regular rate, normal rhythm, normal heart sounds. Absent: systolic murmur, diastolic murmur, rubs, gallop, clicks GI/Abdominal exam: Present: soft, normal bowel sounds. Absent: distended, tenderness, guarding, rebound, rigid Extremities exam: Present: normal inspection, full ROM, normal capillary refill. Absent: tenderness, pedal edema, joint swelling, calf tenderness Back exam: Present: normal inspection Neurological exam: Present: alert, oriented X3, CN II-XII intact Psychiatric exam: Present: normal affect, normal mood Skin exam: Present: warm, dry, intact, normal color. 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 sent in by a medical professional or institution (, PA, COAGULATION OPERATOR, urgent care, hospital, or skilled nursing...) When possible be specific @ -no Did you speak to anyone other than the patient for history (EMS, parent, family, police, friend...)? What history was obtained from this source @ -no Did you review nursing and triage notes (agree or disagree)? Why? @ -agree Are old charts reviewed (outside hosp., previous admission, EMS record, old EKG, old radiological studies, urgent care reports/EKG's, skilled nursing records)? Report findings @ -yes Differential Diagnosis (chest pain, altered mental status, abdominal pain women, abdominal pain men, vaginal bleeding, weakness, fever, dyspnea, syncope, headache, dizziness, GI bleed, back pain, seizure, CVA, palpatations, mental health, musculoskeletal)? @ -prior EKG interpreted by me (3pts min.). @ -yes X-rays interpreted by me (1pt min.). @ -yes negative for acute disease CT interpreted by me (1pt min.). @ -no U/S interpreted by me (1pt. min.). @ -no What testing was considered but not performed or refused? (CT, X-rays, U/S, labs)? Why? @ -none What meds were considered but not given or refused? Why? @ -none Did you discuss the management of the patient with other professionals (professionals i.e. Dr., PA, COAGULATION OPERATOR, lab, RT, psych nurse, social service agency director, general merchandise salesperson, teacher, security flex officer, bottle caser)? Give summary @ -no Was smoking cessation discussed for >3mins.? @ -no Was critical care preformed (if so, how long)? @ -no Were there social determinants of health that impacted care today? How? (Homelessness, low income, unemployed, alcoholism, drug addiction, transportation, low edu. Level, literacy, decrease access to med. care, mcc, rehab)? @ -none Was there de-escalation of care discussed even if they declined (Discuss DNR or withdrawal of care, Hospice)? DNR status @ -no What co-morbidities impacted this encounter? (DM, HTN, Smoking, COPD, CAD, Cancer, CVA, ARF, Chemo, Hep., AIDS, mental health diagnosis, sleep apnea, morbid obesity)? @ -none Was patient admitted / discharged? Hospital course, mention meds given and route, prescriptions, significant lab abnormalities, going to OR and other pertinent info. @ - Undiagnosed new problem with uncertain prognosis? @ -no Drug Therapy requiring intensive monitoring for toxicity (Heparin, Nitro, Insulin, Cardizem)? @ -no Were any procedures done? @ -no Diagnosis/symptom? @ - Acute, or Chronic, or Acute on Chronic? @ -Acute Uncomplicated (without systemic symptoms) or Complicated (systemic symptoms)? @ -Complicated Side effects of treatment? @ -no Exacerbation, Progression, or Severe Exacerbation? @ -exacerbation Poses a threat to life or bodily function? How? (Chest pain, USA, OR, pneumonia, PE, COPD, DKA, ARF, appy, cholecystitis, CVA, Diverticulitis, Homicidal, Suicidal, threat to staff... and all critical care pts) @ -yes Reevaluation #5: Differential Chest Pain: Stable Angina, Unstable Angina, STEMI, NSTEMI Aortic Dissection, Pneumothorax, Musculoskeletal, Esophageal Spasm GERD, Cholecystitis, Pancreatitis, Zoster, this is not meant to be an all-inclusive list. Chest Pain MDM - MDM 33 female to ER for evaluation of chest pain today. Patient presents with chest pain especially with a deep breath recent diagnosis of pneumonia likely poor sleep, patient has no acute findings can be discharged home Disposition Clinical Impression: Atypical chest pain, Chest pain, Pleurisy Disposition: HOME SELF-CARE Condition: Good Instructions (If sedation given, give patient instructions): Chest Pain (ED), Pleurisy (ED) Is patient prescribed a controlled substance at d/c from ED?: No Referrals: Letty Lovell MD [Primary Care Provider] - 1-2 days Time of Disposition: 22:10
[2024-05-15] MEDS: KETOROLAC 15 MG/ML 1 ML VIAL IVP STA (20:48)
[2024-05-15] MEDS: SODIUM CHLORIDE 0.9% 1,000 ML IV STA ×2 (20:48→20:50)
[2024-05-15 20:50] LABS: Basophils # (A) 0.1 k/uL (0-0.2); Basophils % (A) 0 %; Eosinophils # (A) 0.2 k/uL (0-0.7); Eosinophils % (A) 1 %; HCT 45.1 % (34.0-46.0); HGB 15.6 gm/dL (11.4-16.0); Lymphocytes # (A) 1.1 k/uL (1.0-4.8); Lymphocytes % (A) 6 %; MCH 28.9 pg (25.0-35.0); MCHC 34.5 g/dL (31.0-37.0); MCV 83.6 fL (80.0-100.0); Mean Platelet Volume 7.3; Monocytes # (A) 0.5 k/uL (0-1.0); Monocytes % (A) 3 %; Neutrophils # (A) 16.2 k/uL (1.3-7.7); Neutrophils % (A) 89 %; Platelet Count 348 k/uL (150-450); RBC 5.39 m/uL (3.80-5.40); RDW 13.4 % (11.5-15.5); WBC 18.2 k/uL (3.8-10.6)
[2024-05-15 21:03] LABS: INR 0.9 (<1.2); Partial Thromboplastin Time 31.1 sec (22.0-30.0); Prothrombin Time 10.4 sec (10.0-12.5)
[2024-05-15 21:11] LABS: ALT 70 U/L (4-34); African American GFR (CKD) >90 (>60 ml/min/1.73 sqM); Anion Gap 12 mmol/L; Blood Urea Nitrogen 23 mg/dL (7-17); Calcium 9.4 mg/dL (8.4-10.2); Carbon Dioxide 19 mmol/L (22-30); Chloride 105 mmol/L (98-107); Glucose 93 mg/dL (74-99); Lipase 115 U/L (23-300); Non-African American GFR(CKD) >90 (>60 ml/min/1.73 sqM); Sodium 136 mmol/L (137-145)
--- NOTE | 2024-05-15 21:17 | XR ---
EXAMINATION TYPE: XR chest 2V DATE OF EXAM: 05/15/2024 9:12 PM COMPARISON: None. CLINICAL INDICATION: Female, 33 years old with history of Chest Pain; [facility] TECHNIQUE: XR chest 2V Frontal and lateral views of the chest. FINDINGS: Lungs/Pleura: There is no evidence of pleural effusion, focal consolidation, or pneumothorax. Pulmonary vascularity: Unremarkable. Heart/mediastinum: Cardiomediastinal silhouette is unremarkable. Musculoskeletal: No acute osseous pathology. Other findings: None IMPRESSION: No acute cardiopulmonary disease/process. [facility], , 05/15/2024 9:15 PM
[2024-05-15 21:19] LABS: NT-Pro-B-Type Natriuretic Pept <20 pg/mL
[2024-05-15 21:36] LABS: AST 44 U/L (14-36); Albumin 4.7 g/dL (3.5-5.0); Alkaline Phosphatase 90 U/L (38-126); Potassium 4.9 mmol/L (3.5-5.1); Total Bilirubin 1.2 mg/dL (0.2-1.3); Total Protein 7.6 g/dL (6.3-8.2)
--- NOTE | 2024-05-15 22:11 | CT ---
EXAMINATION TYPE: CT angio chest DATE OF EXAM: 05/15/2024 9:56 PM COMPARISON: Chest radiograph from the same day. CLINICAL INDICATION: Female, 33 years old with history of pe; elevatted d dimer. sternal chest pain TECHNIQUE/CONTRAST: CTA scan of the thorax is performed with IV Contrast, patient injected with 100 mL of Isovue 370, MIP images are created and reviewed these are created on a separate workstation.. CT DLP: 301.4 mGycm, Automated exposure control for dose reduction was used. FINDINGS: Pulmonary Artery: Evaluation for acute pulmonary embolism is significantly limited due to suboptimal timing of contrast bolus and motion artifact. Within these limitations, no definite/convincing eviden ce of a central or segmental acute pulmonary embolism. The pulmonary artery is of normal size. Lungs/Pleura: No evidence of focal consolidation, pleural effusion or pneumothorax. Incidental note o f azygous lobe and fissure with nonspecific pleural thickening along the fissure. Mosaic attenuation pattern, which could be related to hypoventilatory changes. Airway: Large airways are patent. Heart: Heart is within normal limits for size. Vasculature: No evidence of aortic aneurysm. Mediastinum: No gross evidence of adenopathy. Musculoskeletal: No acute osseous abnormalities Soft Tissues/lymph nodes: Unremarkable. Lower neck: No significant findings. Upper Abdomen: No significant acute findings. Possible coil embolization clips near the spleen and le ft upper quadrant. IMPRESSION: 1. No convincing evidence of central or proximal segmental acute pulmonary embolism within the signi ficant limitations described above. 2. No acute pulmonary pathology. [facility], , 05/15/2024 10:09 PM
[2024-05-15 22:17] LABS: Influenza A Not Detected (Not Detectd); Influenza B Not Detected (Not Detectd); RSV Not Detected (Not Detectd)
[2024-05-15] MEDS: LORazepam 2 MG/ML INJ IV STA (22:22)
[2024-05-15 22:36] VITALS: BP 105/58; PULSE 97; RESP 17
== END 2024-05-15 22:35 | disposition home or self-care (01) ==
LOC: EC 20:05
DX: R07.89 Other chest pain (principal); R09.1 Pleurisy
CPT/HCPCS: 36415; 93005; 85379; 83880; 80053; 83690; 83735; 84484; 85025; 85610; 85730; 87636; 71046; 71275; 99285; 96374; 96361; J1885; Q9967

== ENCOUNTER → 2024-07-14 | Outpatient (CLI) | payer OTHER ==
--- NOTE | 2024-07-15 07:04 | XR ---
EXAMINATION TYPE: XR foot complete RT DATE OF EXAM: 07/14/2024 4:13 PM INDICATION: Patient age:Female; 33 years old; Reason for study: [id number] RT FOOT INJURY; [facility]. pain COMPARISON: None TECHNIQUE: The right foot was examined in the AP, oblique, and standing lateral projections. FINDINGS: No evidence of any acute osseous pathology. No osseous erosions. No evidence of soft tissue swelling . Joints are preserved. Pes planus. No radiopaque foreign bodies. IMPRESSION: 1. No evidence of acute fracture. 2. Pes planus. [facility], , 07/15/2024 7:02 AM
== END | disposition home or self-care (01) ==
LOC: RADXRYALE 16:00
PROVIDERS: ATTEND Internal Medicine
DX: S99.921S Unspecified injury of right foot, sequela (principal); M21.41 Flat foot [pes planus] (acquired), right foot